=== PATIENT | male | born 1970 | race Caucasian/White ===

== ENCOUNTER 2016-12-28 15:15 | Inpatient (IN) | payer MEDICAID ==
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
--- NOTE | ~2016-12-28 | HP ---
Unit #: [id number] #: [id number] Patient: [facility]IAG[facility] BOWMAN [id number] [facility] [place] [address] [id number] I MR#: [id number] NAME: THIAGO BOWMAN. ROOM: P210 Age: 46 Sex: M Admission Date: 12/28/2016 : 1970 Attending Physician: Lc Silveira M.D. Admitting Physician: Lc Silveira M.D. Primary Care Physician: Generic Doctor Not In System HISTORY AND PHYSICAL HISTORY OF PRESENT ILLNESS Thiago is a 46 year old admitted to [address] [place] [address] because of his drug use. He shoots heroin. PAST MEDICAL HISTORY 1. Long history of opioid abuse to include IV heroin. 2. History of withdrawal seizures, spice. PAST SURGICAL HISTORY Nothing reported. ALLERGIES No known drug allergies. SOCIAL HISTORY Smokes 1 pack per day. Denies alcohol. Admits to a long history of opioid abuse to include IV heroin. He also admits to using spice and abusing benzodiazepines. FAMILY HISTORY Medically noncontributory. REVIEW OF SYSTEMS CONSTITUTIONAL: No fever or chills. HEENT: Denies any sore throat, ear pain or runny nose. CARDIOVASCULAR: Denies chest pain, irregular heart rhythm or palpitations. CHEST: Denies shortness of breath or cough. No hemoptysis. GASTROINTESTINAL: Denies nausea, vomiting, diarrhea or chronic constipation. ENDOCRINE: Denies history of increased thirst or urination. No recent significant weight loss or gain. GENITOURINARY: Denies dysuria, frequency, or hematuria. SKIN: Denies any rashes. HEMATOLOGIC: Denies history of increased bleeding or bruising. MUSCULOSKELETAL: Denies any hot, swollen joints. No generalized muscle pain. NEUROLOGIC: Denies problems with vision or speech. No frequent, severe headaches. No numbness, tingling or weakness in any extremities. Denies loss of bladder or bowel control. CURRENT MEDICATIONS 1. Detox protocol. 2. Effexor 37.5 mg daily. Unit #: [id number] #: [id number] Patient: THIAGO BOWMAN PHYSICAL EXAMINATION GENERAL: Alert, well-nourished, in no apparent distress. VITAL SIGNS: Blood pressure 116/72, heart rate 60, respirations 16, temperature 98.6. WEIGHT: 190. HEIGHT: 5 feet 11 inches. SKIN: Warm and dry without rash or lesion. HEENT: Normocephalic. TMs not viewed. Oral and nasal passages clear. Conjunctivae clear. PERRLA. EOMs intact. NECK: Supple without lymphadenopathy or thyromegaly. HEART: Regular rate and rhythm without murmur. LUNGS: Clear. ABDOMEN: Soft, nontender. : Not done. EXTREMITIES: No evidence of cyanosis, clubbing or edema. Moves all without focal deficit. NEUROLOGICAL: Grossly within normal limits. Cranial Nerves: II: Visual santana are intact. III, IV AND : Extraocular movements are intact. Pupils are equal, round and reactive to light. V: Facial sensation is grossly normal. VII: Facial movements and expression are normal. VIII: Auditory acuity grossly intact. IX, X: Uvula is midline. Phonation is normal. XI: Patient shrugs shoulders and turns head normally. XII: Tongue protrudes in the midline. Sensory and Motor Function: Sensory and motor sensation is grossly normal. Motor: moves all extremities well. Coordination: Gait is normal. Deep Tendon Reflexes: Intact. IMPRESSION Psychiatric admission. RECOMMENDATIONS PSYCHIATRIC: Per psychiatrist. MEDICAL: See no contraindications to participate in facility's activities. MEDICAL PROGNOSIS Good. MEDICAL CONDITION Stable. Dictated by... Marc PraterATang-Rasta. for Garry Weir/tanya TD: 12/28/2016 19:57 JOB #: [id number] Unit #: [id number] #: [id number] Patient: THIAGO BOWMAN HISTORY AND PHYSICAL X Gosia Yousif X HISTORY AND PHYSICAL
--- NOTE | ~2016-12-28 | PN ---
Unit #: [id number] #: [id number] Patient: ONEL GÓMEZ [id number] [facility] [address] [place] [address] [id number] MR#: [id number] NAME: ONEL GÓMEZ. ROOM: P210 Age: 46 Sex: M Admission Date: 12/28/2016 : 1970 Attending Physician: Lc Silveira M.D. Admitting Physician: Lc Silveira M.D. Primary Care Physician: Danielito Doctor Not In System [facility] PROGRESS NOTES DATE OF SERVICE: 01/01/2017 SUBJECTIVE Mr. Gómez is a 46-year-old white male with alcohol dependence, who was seen today and chart was reviewed, and case was discussed with the staff. He has been anxious, withdrawn, and rather seclusive to himself. Meanwhile, he has been cooperative with treatment recommendations and has been taking medications and tolerating them fairly well with no reported side effects. MENTAL STATUS EXAMINATION Middle-aged white male who was casually dressed with fair personal hygiene, appears to be in no acute distress or discomfort. He was awake and alert on interaction with intact orientation. His mood was anxious with a congruent affect. His speech was slow and goal directed. He denies any suicidal or homicidal ideations. His insight and judgment remain slightly impaired. TREATMENT PLAN 1. We will continue him on his current treatment protocol. We will monitor his response and make further adjustments as needed. 2. We will continue to follow up. Dictated by... Garry Cohen/conner TD: 01/02/2017 02:42 JOB #: [id number] [facility] PROGRESS NOTES X Lc Silveira MD PROGRESS NOTE
--- NOTE | ~2016-12-28 | PN ---
Unit #: [id number] #: [id number] Patient: ONEL GÓMEZ [id number] [facility] [address] [place] [address] [id number] I MR#: [id number] NAME: ONEL GÓMEZ. ROOM: P210 Age: 46 Sex: M Admission Date: 12/28/2016 : 1970 Attending Physician: Lc Silveira M.D. Admitting Physician: Lc Silveira M.D. Primary Care Physician: Generic Doctor Not In System [facility] PROGRESS NOTES DATE OF SERVICE 12/31/2016 DISCUSSION Mr. Gómez is a 46-year-old white male who was seen today. Chart was reviewed and case was discussed with the staff. He has been anxious, withdrawn, and rather seclusive to himself. Meanwhile, he has been cooperative with treatment recommendations and has been taking the medications and tolerating them fairly well. MENTAL STATUS EXAMINATION Middle-aged white male who is casually dressed with fair personal hygiene, appears to be in no acute distress or discomfort. The patient was awake and alert on interaction with intact orientation. His mood is anxious with congruent affect. His speech is slow and goal-directed. He denies any suicidal or homicidal ideations. His insight and judgment remain slightly impaired. TREATMENT PLAN We will continue him on his current medications and treatment protocol. We will monitor his response and make further adjustments as needed. Dictated by... Lc Silveira M.D. IAA/bzg TD: 01/02/2017 07:14 JOB #: [id number] [facility] PROGRESS NOTES X Lc Silveira MD PROGRESS NOTE
--- NOTE | ~2016-12-28 | PN ---
Unit #: [id number] #: [id number] Patient: ONEL GÓMEZ [id number] [facility] [address] [place] [address] [id number] I MR#: [id number] NAME: ONEL GÓMEZ. ROOM: P210 Age: 46 Sex: M Admission Date: 12/28/2016 : 1970 Attending Physician: Lc Silveira M.D. Admitting Physician: Lc Silveira M.D. Primary Care Physician: Danielito Doctor Not In System [facility] PROGRESS NOTES DATE 12/30/2016 DISCUSSION Mr. Gómez was seen today and chart was reviewed and case was discussed with the staff. He has been anxious, withdrawn and rather seclusive to himself. Meanwhile, he has been taking the medication and tolerating them fairly well with no reported side effects. MENTAL STATUS EXAM Middle-aged white male who was casually dressed with fair personal hygiene, appears to be in no acute distress or discomfort. He was awake and alert with intact orientation. His mood was anxious with congruent affect. He denies any suicidal or homicidal ideation. His insight and judgement remains slightly impaired. TREATMENT PLAN 1. We will continue him on his current medications and detox protocol. 2. We will continue to follow up. Dictated by... Garry Cohen/yanique TD: 01/01/2017 21:14 JOB #: [id number] [facility] PROGRESS NOTES X Lc Silveira MD PROGRESS NOTE
--- NOTE | ~2016-12-28 | PN ---
Unit #: [id number] #: [id number] Patient: ONEL GÓMEZ [id number] [facility] [address] [place] [address] [id number] I MR#: [id number] NAME: ONEL GÓMEZ. ROOM: P210 Age: 46 Sex: M Admission Date: 12/28/2016 : 1970 Attending Physician: Lc Silveira M.D. Admitting Physician: Lc Silveira M.D. Primary Care Physician: Generic Doctor Not In System [facility] PROGRESS NOTES DATE December 29, 2016 DISCUSSION Mr. Gómez is a 46-year-old white male, who was seen today and chart was reviewed and the case was discussed with the staff. He has been anxious, withdrawn, but has not shown any agitation, irritability, and he has been cooperative with treatment recommendations and he has been taking the medications and tolerating them fairly well. MENTAL STATUS EXAMINATION Middle-aged white male, who was casually dressed with fair personal hygiene and appears to be in no acute distress or discomfort. He was awake and alert on interaction with intact orientation. His mood was anxious with a congruent affect. He denies any suicidal or homicidal ideations. His insight and judgment remain slightly impaired. TREATMENT PLAN 1. We will continue him on his current medications and treatment protocol, and will monitor his response to the medications, and make further adjustments as needed. 2. We will continue to followup. Dictated by... Garry Cohen/norman TD: 12/30/2016 08:39 JOB #: [id number] Unit #: [id number] #: [id number] Patient: ONEL GÓMEZ [facility] PROGRESS NOTES X Lc Silveira MD PROGRESS NOTE
--- NOTE | ~2016-12-28 | DS ---
Unit #: [id number] #: [id number] Patient: ONEL GÓMEZ [id number] [facility] [address] [place] [address] [id number] MR#: [id number] NAME: ONEL GÓMEZ. ROOM: P210 Age: 46 Sex: M Admission Date: 12/28/2016 : 1970 Discharge Date: 01/02/2017 Attending Physician: Lc Silveira M.D. Primary Care Physician: Generic Doctor Not In System DISCHARGE SUMMARY IDENTIFYING DATA Mr. Gómez is a 46-year-old single white male, who is a resident of [place], [place] and was self-referred to the hospital. DISCHARGE DIAGNOSES Psychiatric: Opioid dependence, moderate in acute withdrawals; opioid-induced mood disorder. Medical: None. Stressors: Moderate psychosocial stressors. HISTORY OF PRESENT ILLNESS Please see initial psychiatric evaluation for details. PAST PSYCHIATRIC HISTORY Please see initial psychiatric evaluation for details. PAST MEDICAL HISTORY Please see initial psychiatric evaluation for details. HOSPITAL COURSE [facility] and was oriented to the hospital environment. Routine p.r.n. medications were initiated, and he was started back on his home medication and also detox protocol was initiated and he was closely monitored. He was taking the medications regularly and was tolerating them fairly well and was able to show a decent therapeutic response and was willing to continue treatment on an outpatient basis and as such, it was decided that he will be discharged home and will continue treatment on an outpatient basis. DISCHARGE MEDICATIONS Effexor XR 75 mg a day for depression. DISCHARGE CONDITION Stable. PROGNOSIS Fair. Dictated by... Lc Silveira M.D. IAA/modl Unit #: [id number] #: [id number] Patient: ONEL GÓMEZ TD: 01/02/2017 07:40 JOB #: [id number] DISCHARGE SUMMARY X Lc Silveira MD X DISCHARGE SUMMARY
[2016-12-29 09:51] LABS: BASOPHIL% 0.7 % (0-2.5); EOSINOPHIL# 0.1 X10e3 (0-0.7); EOSINOPHIL% 2.2 % (0.0-7.0); HEMATOCRIT 41.4 % (38.0-50.0); HEMOGLOBIN 13.3 gm/dL (13.0-16.0); LYMPHOCYTE# 2.3 X10e3 (1.0-3.5); MEAN CELL VOLUME 91.2 FL (83-96); MEAN CORPUSCULAR HEMOGLOBIN 29.3 PG (28-34); MEAN CORPUSCULAR HGB CONC 32.1 g/dL (30-36); MEAN PLATELET VOLUME 8.7 FL (6.5-11.5); MONOCYTE# 0.5 X10e3 (0-1.0); MONOCYTE% 8.8 % (3.0-12.0); NEUTROPHIL# 2.6 X10e3 (1.5-7.1); NEUTROPHIL% 47.3 % (40-75); PLATELET COUNT 268 X10e3 (140-420); RED BLOOD COUNT 4.54 X10e (3.90-5.60); RED CELL DISTRIBUTION WIDTH 13.9 % (11.0-15.5); WHITE BLOOD COUNT 5.5 X10e3 (4.0-10.5)
[2016-12-29 10:09] LABS: DIFF IND NO
[2016-12-29 10:15] LABS: THYROID STIMULATING HORMONE 0.13 uIU/ml (0.34-5.60)
[2016-12-29 10:24] LABS: FREE THYROXIN (T4) 0.92 ng/dL (0.58-1.64)
[2016-12-29 10:31] LABS: ALBUMIN SERUM 4.1 g/dL (3.5-5.0); ALKALINE PHOSPHATASE 53 U/L (32-92); ALT (SGPT) 18 U/L (10-40); AST (SGOT) 21 U/L (10-42); BILIRUBIN,TOTAL 0.7 mg/dL (0.2-2.0); BLOOD UREA NITROGEN 12 mg/dL (9-23); CALCIUM SERUM 9.4 mg/dL (8.4-10.2); CARBON DIOXIDE 25 mmol/L (22-31); CHLORIDE 105 mmol/L (100-111); CREATININE SERUM 0.8 mg/dL (0.6-1.4); GLOM FILT RATE Estimated ABOVE60 mL/min (>60); GLUCOSE FASTING 130 mg/dL (70-110); POTASSIUM 4.5 mmol/L (3.5-5.1); PROTEIN TOTAL SERUM 6.6 g/dL (6.0-8.3); SODIUM 140 mmol/L (135-145)
[2016-12-30 13:07] LABS: URINE APPEARANCE CLEAR; URINE BILIRUBIN NEG (NEG); URINE BLOOD NEG (NEG); URINE COLOR YELLOW; URINE GLUCOSE NEG (NEG); URINE KETONE NEG (NEG); URINE LEUKOCYTE ESTERASE NEG (NEG); URINE NITRATE NEG (NEG); URINE PH 6.5 (5-8); URINE PROTEIN NEG (NEG); URINE SPECIFIC GRAVITY 1.016 (1.003-1.035); URINE UROBILINOGEN 0.2 MG/DL (NEG)
[2016-12-30 13:38] LABS: AMPHETAMINE NEG (NEG); BARBITURATES NEG (NEG); BENZODIAZEPINES NEG (NEG); COCAINE NEG (NEG); MARIJUANA NEG (NEG); OPIATES NEG (NEG); TRICYCLIC ANTIDEPRESSANTS NEG (NEG); U METHADONE NEG (NEG)
== END 2017-01-02 09:30 | DRG 897 ==
LOC: P2S 15:15
PROVIDERS: Psychiatry & Neurology Psychiatry
PROC: HZ2ZZZZ Detoxification Services for Substance Abuse Treatment (ICD-10-PCS; principal; 2016-12-28)
DX: F11.23 Opioid dependence with withdrawal (principal); F11.24 Opioid dependence with opioid-induced mood disorder; Z59.0 Homelessness
CPT/HCPCS: 80053; 80307; 81003; 84439; 84443; 85025; 86592